=== PATIENT | female | born 1995 | race Two or more races ===

== ENCOUNTER 2024-05-20 13:17 | Emergency (ER) | payer BC, SELFPAY ==
--- NOTE | ~2024-05-20 | US_ITS ---
EXAMINATION: US OB <= 14 weeks fetus DATE: 05/20/2024 15:08 INDICATION: Abdominal pain during first trimester TECHNIQUE: Real-time pelvic ultrasound utilizing transabdominal probe was performed. Patient deferre d transvaginal imaging. The interpreting radiologist was not present for the study. COMPARISON: None. FINDINGS: The uterus measures 6.9 x 4.5 x 6.9 cm. There is an intrauterine gestational sac with double decidua l sign but no discernible yolk sac or pole yet apparent likely due to early stage of . The mean sac diameter measures 7 mm, which correlates with an estimated gestational age of 5 weeks a nd 3 days. The bilateral ovaries are not visualized. There is no free fluid in the pelvis. IMPRESSION: 1. Single intrauterine gestational sac with no discernible yolk sac or pole likely due to early stage of . 2. Gestational age by ultrasound based upon 7 mm mean sac diameter of 5 weeks 3 day(s) +/- 3 day(s) with ultrasound estimated date of delivery (DELICIA) of 01/17/2025. Reviewed, dictated and finalized at location A. IMPRESSION: 1. Single intrauterine gestational sac with no discernible yolk sac or po le likely due to early stage of . 2. Gestational age by ultrasound based upon 7 mm mean sac diameter of 5 weeks 3 day(s) +/- 3 day(s) with ultrasound estimated date of delivery (DELICIA) of 025.
[2024-05-20 13:22] VITALS: BP 148/94; PULSE 78; RESP 16; TEMP 36.7; O2SAT 100
--- NOTE | 2024-05-20 13:33 | ED.GENADULT ---
HPI - General Adult General Chief complaint: Unspecified Stated complaint: wants blood test Time Seen by Provider: 05/20/24 13:20 History of Present Illness HPI narrative: patient is here requesting serum test she states he had taken 2 test at home and results were equivocal, she has been having some vague nausea and lower abdominal pain and would like to have serum test. no vaginal bleeding, last period one month ago Review of Systems Review of Systems: All systems reviewed & are unremarkable except as noted in HPI and below Exam Narrative: EXAMINATION OF ORGAN SYSTEMS/BODY AREAS: Constitutional: Vital signs per nursing GENERAL:[No acute distress, non-toxic appearing.] HEAD: Normal with no signs of head trauma. EYES: EOMI, conjunctiva normal ENT: Hearing grossly intact LUNGS: Nonlabored breathing. HEART: [Regular rate and rhythm] ABD: [Soft], nondistended EXT: Normal range of motion SKIN: [No rashes or lesions.] NEURO: [Alert and oriented x 3. No gross focal sensory or strength deficits.] PSYCH: Normal affect Course Vital Signs Vital signs: Vital Signs Temperature 98.0 F 05/20/24 13:22 Pulse Rate 78 05/20/24 13:22 Respiratory Rate 16 05/20/24 13:22 Blood Pressure 148/94 H 05/20/24 13:22 Pulse Oximetry 100 05/20/24 13:22 Oxygen Delivery Room Air 05/20/24 13:22 Temperature 98.0 F 05/20/24 13:22 Pulse Rate 78 05/20/24 13:22 Respiratory Rate 16 05/20/24 15:11 Blood Pressure 148/94 H 05/20/24 13:22 Pulse Oximetry 100 05/20/24 13:22 Oxygen Delivery Room Air 05/20/24 13:22 Medical Decision Making [facility] Narrative Medical decision making narrative: Patient presenting with concern for possible , test here is positive, transvaginal ultrasound ordered however patient would prefer to wait at this time, she went back and forth on whether she was having pain initially said no, then said possibly a fullness and discomfort in her lower abdomen, no vaginal bleeding. transabdominal ultrasound shows intrauterine sac, very likely early around 5 weeks. She is given prescription for vitamins and follow-up to be with return precautions. Patient agreeable to this plan. Vital Signs Vital Signs: Vital Signs Temperature 98.0 F 05/20/24 13:22 Pulse Rate 78 05/20/24 13:22 Respiratory Rate 16 05/20/24 13:22 Blood Pressure 148/94 H 05/20/24 13:22 Pulse Oximetry 100 05/20/24 13:22 Oxygen Delivery Room Air 05/20/24 13:22 Temperature 98.0 F 05/20/24 13:22 Pulse Rate 78 05/20/24 13:22 Respiratory Rate 16 05/20/24 15:11 Blood Pressure 148/94 H 05/20/24 13:22 Pulse Oximetry 100 05/20/24 13:22 Oxygen Delivery Room Air 05/20/24 13:22 Lab Data Labs: Lab Results 05/20/24 Range/Units 13:26 Beta HCG, Quant 8703.20 mIU/ML Discharge Plan Discharge Clinical Impression: Patient Disposition: Home, Self-Care Condition: Stable Instructions: Antibiotic Form, Abdominal Pain in (ED) Additional Instructions: Please follow-up with the OBGYN, and come back to the emergency room for any worsening symptoms including abdominal pain or vaginal bleeding. Prescriptions: New Alive Daily Support 180 mcg-25 mg- 25 mg tablet,chewable 1 tablet PO DAILY 30 Days Qty: 30 0RF Follow-up/Referrals: Latanya Card MD [Physician] - 2 Days UNKNOWN,DOCTOR [Primary Care Provider] -
[2024-05-20 15:11] VITALS: RESP 16
== END 2024-05-20 15:15 | disposition home or self-care (01) ==
PROVIDERS: Emergency Provider Emergency Medicine
DX: O26.891 Other specified pregnancy related conditions, first trimester (principal); R10.30 Lower abdominal pain, unspecified; Z3A.01 Less than 8 weeks gestation of pregnancy
CPT/HCPCS: 36415; 76801; 84702; 99284

== ENCOUNTER 2024-07-02 11:48 | Outpatient (CLI) | payer BC, SELFPAY ==
[2024-07-02 17:04] LABS: Basophils Percent Auto 0.2 % (0.2-1.2); Eosinophils Percent Auto 0.3 % (0-4.4); Hemoglobin 11.4 g/dL (12.0-15.0); Immature Granulocyte Absolute 0.01 K/mm3 (0.00-0.031); Immature Granulocyte Percent A 0.2 % (0-0.5); Lymphocytes Absolute Auto 1.61 K/mm3 (0.9-3.2); Lymphocytes Percent Auto 27.9 % (18.3-44.2); Mean Corpuscular HGB Conc 31.7 g/dl (32-36); Mean Corpuscular Hemoglobin 29.7 pg (26-34); Mean Corpuscular Volume 93.8 fl (80-100); Monocytes Absolute Auto 0.3 K/mm3 (0.1-0.6); Monocytes Percent Auto 4.8 % (2.6-8.5); Neutrophils Absolute Auto 3.9 K/mm3 (1.3-6.7); Neutrophils Percent Auto 66.6 % (45.5-73.1); Platelet Count Result 239 k/mm3 (150-375); Red Blood Count 3.84 M/mm3 (4.2-5.4); Red Cell Distribution Width 12.8 % (11.5-14.5); White Blood Count 5.8 K/mm3 (4.5-10.0)
[2024-07-02 18:20] LABS: Hepatitis B Surface Antigen Negative (Negative); Rubella IgG Antibody 51.6 IU/ML
[2024-07-02 19:57] LABS: HIV 1/2 Ab P24 Ag Result Negative (Negative)
[2024-07-03 10:21] LABS: Rapid Plasma Reagin Non-Reactive (NonReactive)
[2024-07-03 13:58] LABS: Varicella IgG Antibody <1.00 S/CO
== END 2024-07-02 11:49 | disposition home or self-care (01) ==
PROVIDERS: Visit Provider Student in an Organized Health Care Education/Training Program
DX: Z34.90 Encounter for supervision of normal pregnancy, unspecified, unspecified trimester (principal); Z3A.00 Weeks of gestation of pregnancy not specified
CPT/HCPCS: 36415; 81220; 81329; 84702; 85025; 85660; 86592; 86644; 86703; 86747; 86762; 86787; 86850; 86900; 86901; 87086; 87340; G0432

== ENCOUNTER 2025-01-20 17:01 | Inpatient (IN) | payer BC, SELFPAY ==
[2025-01-20] VITALS (13 sets, daily range): BP systolic 118–147; BP diastolic 64–121; PULSE 57–85; TEMP 36.8–36.9; O2SAT 97; BMI 27.6
--- OUTSIDE RECORDS SUMMARY | 2025-01-20 17:06 | XMS_ITS | Clinical Summary ---
Author Organization [facility] Address [address] [address] Care Team Providers Care Member Services Representative Name Role Phone Unavailable Primary Care Provider Unavailabl e Source Comments [facility],non-owned Affiliates and Associated Physician Practices is amultiple site organization consisting of ambulatory clinics and hospital sitesin [place], [place], [place] and [place]. This disclosure is being madepursuant to the Care Everywhere program and may not contain all information available regarding this patient. Last updated 18.[facility] Allergies Active Allergy Reactions Criticality Noted Date Comments Malaria (Hbsag-Fused) Vaccine Recomb Adj Itching 07/25/2024 Medications * Be aware that medications may not be up to date on this document. Alwaysverify current medications with the patient. Vit-Fe Fumarate-FA ( vitamin) 28-0.8 MG tablet Take 1 (one) tablet by mouth once daily Active famotidine (Pepcid) 10 MG tablet Take 2 (two) tablets by mouth once daily Active aspirin (Aspirin) 81 MG chew tablet Take 1 (one) tablet by mouth once daily Active ferrous sulfate 325 (65 FE) MG tablet Take 1 (one) tablet by mouth once daily Active Active Problems Problem Noted Date Diagnosed Date High-risk in second trimester 07/31/20 24 History of intrauterine , currently p regnant 07/31/2024 History of loss 09/17/2022 Overview (07/31/2024): per patient and sig. other 32 weeks Personal history of malaria: age 8 Language barrier, cultural differences: speaks F rench Estimated Date of Delivery Comme nts Yes 01/21/2025 Based on last me nstrual period of 04/16/2024 Encounters Date Type Department Care Team Description 01/13/2025 9:00 AM CDT - 01/13/2025 11:59 PM CDT Hospital Encounter [facility] [address] [place] [phone] Head, Cary Vang MD Discharge Disposition: Home or Self Care 01/06/2025 9:00 AM CDT - 01/06/2025 11:59 PM CDT Hospital Encounter [facility] [address] [place] [phone] Tai Rodriguez MD Discharge Disposition: Home or Self Care 01/06/2025 Travel 12/30/2024 9:00 AM CDT - 12/30/2024 11:59 PM CDT Hospital Encounter [facility] [address] [place] [phone] Tai Rodriguez MD Discharge Disposition: Home or Self Care 12/24/2024 2:14 PM CDT - 12/24/2024 11:59 PM CDT Hospital Encounter [facility] [address] [place] [phone] Teri Hurtado MD Discharge Disposition: Home or Self Care 12/19/2024 1:41 PM CDT - 12/19/2024 11:59 PM CDT Hospital Encounter [facility] [address] [place] [phone] Tolu Wheeler MD Stewart, Jeffrey D, MD Discharge Disposition: Home or Self Care 12/12/2024 9:00 AM CDT - 12/12/2024 11:59 PM CDT Hospital Encounter [facility] [address] [place] [phone] Tai Rodriguez MD Discharge Disposition: Home or Self Care 12/02/2024 9:00 AM CDT - 12/02/2024 11:59 PM CDT Hospital Encounter [facility] [address] [place] [address] Teri Hurtado MD Discharge Disposition: Home or Self Care 11/24/2024 9:45 AM CDT - 11/24/2024 11:59 PM CDT Hospital Encounter [facility] [address] [place] [phone] Tai Rodriguez MD Discharge Disposition: Home or Self Care 11/19/2024 1:45 PM [employer] - 11/19/2024 11:59 PM [employer] Hospital Encounter [facility] [address] [place] [phone] Tolu Wheeler MD Discharge Disposition: Home or Self Care 11/10/2024 9:00 AM [employer] - 11/10/2024 11:59 PM [employer] Hospital Encounter [facility] [address] [place] [phone] Tai Rodriguez MD Discharge Disposition: Home or Self Care from Last 3 Months Social History Tobacco Use Types Packs/Day Years Used Date Smoking Tobacco: Never Assessed Estimated Date of Delivery Comme nts Yes 01/21/2025 Based on last me nstrual period of 04/16/2024 Sex and Gender Information Value Date Recorded Sex Assigned at Not on file Legal Sex Female 3:26 PM [employer] Gender Identity Not on file Sexual Orientation Not on file Last Filed Vital Signs Vital Sign Reading Time Taken Comments Blood Pressure 126/85 01/13/2025 10:49 AM CDT Pulse 71 01/13/2025 10:49 AM CDT Temperature - - Respiratory Rate - - Oxygen Saturation - - Inhaled Oxygen Concentration - - Weight 68.6 kg (151 lb 3.2 oz) 11/19/2024 2:07 P M [employer] Height - - Body Mass Index - - Plan of Treatment Health Maintenance Due Date Last Done Comments PAP SMEAR 1994 HIV SCREENING 2009 HEPATITIS C SCREENING 10/14/2012 DTAP/TDAP/TD VACCINES (1 - Tdap) 2013 HEPATITIS B VACCINE (1 of 3 - 19+ 3-dose series) 2013 COVID-19 VACCINE (1 - 2023-2 5 season) 2024 DEPRESSION SCREENING 09/17/2024 OB-ONE HOUR GLUCOSE 10/15/2024 OB-TDAP CURRENT 10/22/2024 OB-RHOGAM INJECTION 10/29/2024 OB-GROUP B STREP SCREEN 12/17/2024 INFLUENZA VACCINE (Season Ended) 2025 ZOSTER VACCINE (1 of 2) 2044 HIB VACCINE Aged Out No longer eligi ble based on patient's age to complete this topic HPV VACCINE Aged Out No longer eligi ble based on patient's age to complete this topic MENINGOCOCCAL (Group B) VACC INE SHARED DECISION-MAKING Aged Out No longer eligibl e based on patient's age to complete this topic MENINGOCOCCAL GROUPS A/C/Y/W VACCINE Aged Out No longer eligible b ased on patient's age to complete this topic PNEUMOCOCCAL VACCINE Aged Out No long er eligible based on patient's age to complete this topic Respiratory Syncytial Virus (RSV) Vaccine Pt: or over 60 yrs (No Doses Required) Completed Procedures Procedure Name Priority Date/Time Associated Diagnosis Comments [facility] Rout[facility] 01/13/2025 9:33 AM CDT History of intrauterine , currently ([facility]) Personal history of malaria: age 8 BIOPHYSICAL PROFILE [facility] Routine 01/06/2025 8:54 AM CDT History of intrauterine , currently ([facility]) Personal history of malaria: age 8 [facility]HYSICAL [facility] Routine 12/30/2024 8:52 AM CDT History of intrauterine , currently ([facility]) Language barrier, cultural differences: speaks Irish History of loss Personal history of malaria: age 8 Encounter for screening ([facility]) High-risk , third trimester ([facility]) BIOPHYSICAL PROFILE W T Routine 12/24/2024 2:17 PM CDT History of intrauterine , currently ([facility]) Language barrier, cultural differences: speaks Irish History of loss Personal history of malaria: age 8 Encounter for screening ([facility]) High-risk , third trimester ([facility]) BIOPHYSICAL PROFILE W NST Routine 12/19/2024 2:16 PM CDT History of intrauterine , currently ([facility]) Language barrier, cultural differences: speaks Irish History of loss Personal history of malaria: age 8 Encounter for screening ([facility]) High-risk , third trimester ([facility]) BIOPHYSICAL PROFILE W NST Routine 12/12/2024 8:54 AM CDT High-risk in second trimester History of intrauterine , currently Personal history of malaria: age 8 Encounter for screening Language barrier, cultural differences: speaks Irish BIOPHYSICAL PROFILE W NST Routine 12/02/2024 8:56 AM CDT High-risk in second trimester History of intrauterine , currently Personal history of malaria: age 8 Encounter for screening Language barrier, cultural differences: speaks Irish BIOPHYSICAL PROFILE W NST Routine 11/24/2024 9:40 AM CDT High-risk in second trimester History of intrauterine , currently Personal history of malaria: age 8 Encounter for screening Language barrier, cultural differences: speaks Irish BIOPHYSICAL PROFILE W NST Routine 11/19/2024 2:33 PM [employer] High-risk in second trimester History of intrauterine , currently Personal history of malaria: age 8 Encounter for screening Language barrier, cultural differences: speaks Irish BIOPHYSICAL PROFILE W NST Routine 11/10/2024 8:59 AM [employer] High-risk in second trimester History of intrauterine , currently Personal history of malaria: age 8 Encounter for screening Language barrier, cultural differences: speaks Irish from Last 3 Months Results * BIOPHYSICAL PROFILE W NST (01/13/2025 9:33 AM CDT) Only the most recent of10 resultswithin the time period is included. Linked Results Indication ======== History of Malaria age 8 in the [place] Prior demise & ? IUGR at 30 weeks History ====== OB History 2. Para 1 [id number] Lab Tests Test Date Result Declined Maternal Assessment = Physical Exam Height 168 cm, 5 ft 6 in. Weight 75 kg, 165 lb. Initial weight 64 kg, 142 lb. BMI 26.63 kg/m . Initial BMI 22.92 kg/m . Weight gain 10 kg, 23 lb Method ====== Transabdominal ultrasound examination. View: Sufficient ========= Trejo . Number of fetuses: 1 Dating ====== Date Details Gest. age DELICIA LMP 04/16/2024 38 w + 6 d 01/21/2025 Stated DELICIA 38 w + 6 d 01/21/2025 Assigned dating based on the LMP, selected on 07/30/2024 38 w + 6 d 01/21/2025 General Evaluation Cardiac activity present. FHR 128 bpm. Presentation: cephalic Placenta: Placental site: posterior Amniotic Fluid Assessment ===== Amount of AF: normal MVP 5.3 cm. BELL 16.6 cm. Q1 2.4 cm, Q2 5.3 cm, Q3 4.0 cm, Q4 4.9 cm Biophysical Profile 0: breathing movements 2: Gross body movements 2: tone 2: Amniotic fluid volume NST: reactive 04/26 Biophysical profile score Non Stress Test NST interpretation: reactive. Baseline FHR 135 bpm. Baseline variability: moderate. Accelerations: present. Decelerations: absent. Uterine activity: present, irregular Biometry BPD 94.5 mm 38w 4d 72% Hadlock HC 340.5 mm 39w 1d 45% Hadlock AC 334.1 mm 37w 2d 28% Hadlock Femur 71.9 mm 36w 6d 12% Hadlock Humerus 61.5 mm 35w 4d 9% Binh HC / AC 1.02 Weight Calculation: EFW 3,240 g 36% Hadlock EFW (lb,oz) 7 lb 2 oz EFW by Hadlock ([id number]) appropriate Growth Overview = Exam date GA BPD (mm) HC (mm) AC (mm) FL (mm) HL (mm) EFW (g) 07/30/2024 15w 0d 32.7 91% 119.7 82% 99.8 85% 18.6 67% 18.3 70% 135 88% 08/26/2024 18w 6d 47.1 94% 170.3 79% 144.2 75% 29.1 47% 29 72% 292 77% 09/24/2024 23w 0d 61.5 96% 219.8 75% 185.2 52% 42 61% 37.7 46% 610 71% 10/22/2024 27w 0d 70.8 83% 269.2 90% 229.8 53% 51.5 51% 46.2 53% 1109 65% 11/19/2024 31w 0d 83.2 95% 304.1 87% 264 32% 58.6 25% 52 34% 1698 41% 12/19/2024 35w 2d 92.7 97% 332.3 80% 308.2 42% 64.1 4% 56.4 11% 2547 38% 01/13/2025 38w 6d 94.5 72% 340.5 45% 334.1 28% 71.9 12% 61.5 9% 3240 36% Anatomy The following structures appear normal: Abdomen Stomach. Kidneys. Bladder. sex: male. Impression ========= Single, live, intrauterine at 38w 6d The growth is appropriate. The amniotic fluid volume is normal. The biophysical profile is 8/10. (no breathing) Follow-up ======== Follow up ultrasound in 1 week for weekly NST and biophysical profile Delivery is recommended at 39-40 weeks. Delivery is recommended by DELICIA. Close maternal attention to movement is recommended. Coding ====== Procedures 18711: [place] [address]: Biophysical Profile W NST . [facility] PACS Anatomical Region Laterality Modality Other 01/13/2025 9:33 AM CDT uQinten Forbes MD [facility] ORDERABLES Edited Result - Final from Last 3 Months Insurance [facility] Address: [facility] [id number] [place] [id number]
--- NOTE | 2025-01-20 17:57 | LDADM ---
This patient, Sinai Rodriguez, was admitted to Labor/Delivery/Recovery 104 on 01/20/25 at 17:01. Plans for labor, pain management and were discussed with patient. Patient/family oriented to hospital policies and general routines including ID bracelet, bed and alarms, visiting hours, pain management, procedures, bathroom and other care routines, personal items, smoking policy, room service/diet and guest tray routines, security routines, and visiting hours. Patient/Family are encouraged to report perceived risks to care and to ask questions if they do not understand what they are told or what they should do. See OBIX for further documentation.
[2025-01-20] MEDS: DINOPROSTONE 10 MG VAG INSERT VAGINAL (18:32)
[2025-01-20 18:52] LABS: Hematocrit 36.4 % (37.0-47.0); Mean Corpuscular Hemoglobin 31.2 pg (26-34); Mean Corpuscular Volume 94.5 fl (80-100); Platelet Count Result 155 k/mm3 (150-375); Red Blood Count 3.85 M/mm3 (4.2-5.4); Red Cell Distribution Width 12.5 % (11.5-14.5); White Blood Count 8.2 K/mm3 (4.5-10.0)
[2025-01-20 19:26] LABS: Band Neutrophils Percent 1 % (0-6); Eosinophils Absolute Manual 0.16 K/mm3 (0.02-0.50); Eosinophils Percent Manual 2 % (0-4); Lymphocytes Absolute Manual 2.21 K/mm3 (1.1-4.5); Lymphocytes Percent Manual 27 % (18-44); Monocytes Absolute Manual 0.57 K/mm3 (0.1-0.90); Monocytes Percent Manual 7 % (3-9); Neutrophils Absolute Manual 5.24 K/mm3 (1.7-7.2); Neutrophils Percent Manual 63 % (46-73); Platelet Estimate Adequate (Adequate); Total Cells Counted 100
[2025-01-20 19:27] LABS: Schistocytes None Seen
[2025-01-20 19:50] LABS: HIV 1/2 Ab P24 Ag Result Negative (Negative)
[2025-01-20 19:56] LABS: Syphilis IgG/IgM Antibody Negative (Negative)
[2025-01-21] VITALS (297 sets, daily range): BP systolic 98–167; BP diastolic 62–118; PULSE 36–242; RESP 18; TEMP 36.6–37.2; O2SAT 84–100
--- NOTE | 2025-01-21 07:25 | P.HPUP_ITS ---
History and Physical Update Update Date/Time: 01/21/25 07:25 29 yo who presents for IOL at 40w1d History and Physical has been reviewed, including an updated exam of the patient. There are NO changes in the patient's condition. Risks, benefits, and alternatives have been discussed and questions answered. Patient agrees to proceed with procedure. - h/o IUFD @ 7 mo, likely 2/2 preeclampsia, low dose ASA, will start testing at 30wk - anti-cardiolipin antibody elevated at 14, will need repeat after 11/01/24, MFM following - h/o malaria at age 8- moved her from [facility], recent test was negative for malaria - varicella non-immune - Syriac speaking - NIPT low risk A/P: admit to L&D plan for cervidil IOL continuous EFM GBS positive, will start abx with pitocin
[2025-01-21] MEDS: LACTATED RINGERS 1,000 ML 125 ML IV CONT ×4 (07:37→22:00)
[2025-01-21] MEDS: OXYTOCIN 30 UNITS/NS 500 ML 30 UNITS/500 ML BAG IV CONT (07:37)
[2025-01-21] MEDS: AMPICILLIN 2 GM/NS 100 ML 2 GM/100 ML BAG IVPB (07:38)
[2025-01-21] MEDS: AMPICILLIN 1 GM/NS 50 ML 1 GM/50 ML BAG IVPB ×4 (11:32→23:27)
[2025-01-21] MEDS: MULTIVIT/MIN/PREN/FOL AC/IRON TABLET 1 TAB PO (11:32)
--- NOTE | 2025-01-21 17:53 | P.PNAN_ITS ---
Anes - Initial Pre Proc Eval Procedure: labor epidural Date/Time: 01/21/25 17:53 Surgeon: Quintne Forbes MD Pre Op Diagnosis: labor pain Pre Op Diagnosis: Induction of Labor Patient Data Age: 29 Gender: F Height: 1.65 m Weight: 75.296 kg Last Vital Signs Temp 36.6 C 01/21/25 17:09 Pulse 62 01/21/25 17:51 Resp 18 01/21/25 03:59 BP 126/80 01/21/25 17:51 Pulse Ox 100 01/21/25 17:52 O2 Del Method Room Air 01/20/25 19:00 Allergies Allergy/AdvReac Type Severity Reaction Status Date / Time malaria vaccine Allergy Intermediate Itching Uncoded 01/19/25 15:18 Home Medications ?Medication ?Instructions ?Recorded ?Confirmed ?Type mv-mn no.97-folic 180 mcg-dha 25 1 tablet PO DAILY 30 days #30 tabs 05/20/24 01/19/25 Rx mg-herb no.293 25 mg chewable tablet (Alive Daily Support ) famotidine 10 mg tablet 10 mg PO DAILY #90 tabs 06/10/24 01/19/25 Rx Laboratory Tests 01/20/25 17:26 WBC 8.2 K/mm3 (4.5-10.0) RBC 3.85 L M/mm3 (4.2-5.4) Hgb 12.0 g/dL (12.0-15.0) Hct 36.4 L % (37.0-47.0) MCV 94.5 fl (80-100) MCH 31.2 pg (26-34) MCHC 33.0 g/dl (32-36) RDW 12.5 % (11.5-14.5) Plt Count 155 k/mm3 (150-375) MPV 13.0 H fl (7.4-10.4) Immature Gran % (Auto) Not Reportable Neut % (Auto) Not Reportable Lymph % (Auto) Not Reportable [facility] % (Auto) Not Reportable Eos % (Auto) Not Reportable Baso % (Auto) Not Reportable Lymph # (Auto) Not Reportable [facility] # (Auto) Not Reportable Eos # (Auto) Not Reportable Baso # (Auto) Not Reportable Abs Immat Gran (auto) Not Reportable Absolute Neuts (auto) Not Reportable Absolute Nucleated RBC Not Reportable Total Counted 100 Neutrophils % (Manual) 63 % (46-73) Band Neutrophils % 1 % (0-6) Lymphocytes % (Manual) 27 % (18-44) Monocytes % (Manual) 7 % (3-9) Eosinophils % (Manual) 2 % (0-4) Nucleated RBC % Not Reportable Abs Neuts (Manual) 5.24 K/mm3 (1.7-7.2) Abs Lymphs (Manual) 2.21 K/mm3 (1.1-4.5) Abs Monocytes (Manual) 0.57 K/mm3 (0.1-0.90) Absolute Eos (Manual) 0.16 K/mm3 (0.02-0.50) Platelet Estimate Adequate (Adequate) Schistocytes None seen Syphilis IgG/IgM Ab Negative (Negative) HIV 1&2 Ab/P24 Ag 4thGn Negative (Negative) Blood Type A Positive Antibody Screen Negative Patient hx anesthesia problems: none Family hx anesthesia problems: none Results Review: All pre-operative results and documents have been reviewed as part of the pre- operative evaluation. [facility] Past Medical History Medical History (Updated 01/21/25 @ 17:54 by Alexis Almaguer DO) History of malaria age 8 Encounter for supervision of other normal , second trimester Family History Family History Other Unknown family medical history Social History Social History Smoking status: Never smoker Alcohol intake: never Substance use: never Substance use type: does not use Do You Feel Safe in your Home?: Yes Lack of Transportation: No Lack of Food: Never True Current Housing: I Have Housing Concerned About Future Housing: No Difficulty Paying Gas/Electric Bills: No Difficulty Paying for Meds: No Currently Unemployed: No Education: High School Diploma/GED Difficulty w/ Childcare or Family Care: No Living arrangements: with family Occupation/Education: unemployed Gender identity (if verbalized by the patient): Female Sexual Orientation (if Verbalized by the Patient): Straight or Heterosexual Spiritual care concerns: No Anes - Eval Final PreProcedure Day of Procedure 01/21/25 17:53 Patient weight: overweight ASA classification: II Anesthetic plan: proceed Anesthesia type and monitoring: regional epidural and standard monitoring Results Review: All pre-operative results and documents have been reviewed as part of the pre- operative evaluation. Informed Consent: The patient's anesthetic plan and its attendant risks and benefits were discussed with the patient/family/POA. Questions were solicited and answers provided to the satisfaction of the patient/family/POA.
[2025-01-22] VITALS (152 sets, daily range): BP systolic 110–173; BP diastolic 26–98; PULSE 25–158; RESP 16–20; TEMP 36.4–37.5; O2SAT 73–100
[2025-01-22] MEDS: SODIUM CHLORIDE 0.9% IV 300 ML 600 ML I-UTERINE (00:24)
[2025-01-22 00:41] LABS: Add Urine Microscopic? YES; Appearance Urine Clear (Clear); Bacteria Urine None Seen /hpf; Bilirubin Urine Negative (Negative); Blood Urine 1+ (Negative); Color Urine Yellow (Yellow); Glucose Urine UA Negative (Negative); Ketones Urine Negative (Negative); Leukocyte Esterase Ur 2+ LEU/UL (Negative); Nitrate Urine Negative (Negative); Non Pathogenic Casts 0-2; Protein Urine Negative (Negative); RBC Urine 21-50 /hpf (0-2); Specific Grav Ur 1.011 (1.001-1.035); Squamous Epithelial Cell Urine None Seen /hpf (Few); Urobilinogen Urine 0.2 mg/dL (<2.0); WBC Urine 21-50 /hpf (0-3); pH Urine 7.5 (5.0-9.0)
[2025-01-22 00:42] LABS: Creatinine Urine 36.2 mg/dL; Total Protein Urine Random 21 mg/dL; Ur Ttl Prot Creatinine Ratio 0.58 mg/mg (0-0.20)
[2025-01-22 01:03] LABS: Hematocrit 45.8 % (37.0-47.0); Hemoglobin 14.3 g/dL (12.0-15.0); Mean Corpuscular HGB Conc 31.2 g/dl (32-36); Mean Corpuscular Hemoglobin 30.6 pg (26-34); Mean Corpuscular Volume 98.1 fl (80-100); Mean Platelet Volume 12.2 fl (7.4-10.4); Platelet Count Result 181 k/mm3 (150-375); Red Blood Count 4.67 M/mm3 (4.2-5.4); Red Cell Distribution Width 12.5 % (11.5-14.5)
[2025-01-22 01:16] LABS: Band Neutrophils Percent 0 % (0-6); Neutrophils Absolute Manual 7.48 K/mm3 (1.7-7.2); Neutrophils Percent Manual 68 % (46-73); Total Cells Counted 100
[2025-01-22 01:17] LABS: Eosinophils Absolute Manual 0.11 K/mm3 (0.02-0.50); Eosinophils Percent Manual 1 % (0-4); Lymphocytes Absolute Manual 2.97 K/mm3 (1.1-4.5); Lymphocytes Percent Manual 27 % (18-44); Monocytes Absolute Manual 0.44 K/mm3 (0.1-0.90); Monocytes Percent Manual 4 % (3-9); Platelet Estimate Adequate (Adequate); Schistocytes None Seen
[2025-01-22 01:23] LABS: Alanine Aminotransferase 17 U/L (6-35); Albumin Level 4.2 g/dL (3.5-5.1); Alkaline Phosphatase 179 U/L (38-126); Anion Gap 12 mmol/L (4-12); Aspartate Amino Transferase 24 U/L (14-36); Bilirubin,Total 0.4 mg/dL (0.2-1.3); Blood Urea Nitrogen 7 mg/dL (7-17); Calcium 9.4 mg/dL (8.4-10.2); Carbon Dioxide 20 mmol/L (22-30); Chloride 106 mmol/L (98-107); Estimated CRCL calculation 135 ml/min; Estimated Glomerular Filt Rate > 60; Glucose 74 mg/dL (65-110); Potassium 3.9 mmol/L (3.4-5.0); Sodium 138 mmol/L (137-145); Uric Acid 3.9 mg/dL (2.5-7.5)
[2025-01-22] MEDS: AMPICILLIN 1 GM/NS 50 ML 1 GM/50 ML BAG IVPB (03:35)
--- NOTE | 2025-01-22 06:14 | PM.OBPNLAB ---
Pain Control Date/time seen: 01/22/25 06:14 Pain control: tolerating well and epidural Pelvic Exam Dilation (cm): 7 Effacement (%): 80 station: 0 Amniotic membrane status: Ruptured Contractions Monitor mode: External Contraction pattern: Irregular Contraction intensity: Mild Status status: Category ll Assessment and Plan Assessment: induction ongoing Comments: Discussed plan of care with patient and father of baby. heart tracing overnight had periodic episodes of recurrent late decelerations. Discussed these findings with the patient. head feels more applied into the pelvis. Will restart Pitocin. Discussed that if heart tracings are intolerant to labor, would consider section.
[2025-01-22] MEDS: LACTATED RINGERS 1,000 ML 125 ML IV CONT (06:50)
--- NOTE | 2025-01-22 06:50 | PM.IMHP ---
H&P: HPI History of Present Illness Date/Time: 01/22/25 06:50 Chief Complaint: Intrauterine at term Narrative: 31-year-old who presented at 40 weeks 1 day for induction of labor - h/o IUFD @ 7 mo, likely 2/2 preeclampsia, low dose ASA, testing since 30wk - h/o malaria at age 8- moved her from [facility], recent test was negative for malaria - varicella non-immune - Citizen Of [place] speaking - NIPT low risk Review of Systems Cardiovascular: Cardiovascular: Denies chest pain, Denies leg edema, Denies palpitations, Denies dyspnea and Denies dyspnea on exertion Respiratory: Respiratory: Denies cough, Denies dyspnea and Denies dyspnea on exertion Gastrointestinal: Gastrointestinal: Denies abdominal pain, Denies constipation, Denies diarrhea, Denies nausea and Denies vomiting Genitourinary: Genitourinary: Denies hematuria, Denies urinary frequency, Denies dysuria, Denies pelvic pain, Denies urinary incontinence and Denies vaginal discharge Neurologic: Reports system reviewed and no additional complaints, except as documented Psychiatric: Psychiatric: Reports no additional psychiatric complaints Endocrine: Endocrine: Denies palpitations PMF Past Medical History Medical History (Updated 01/21/25 @ 17:54 by Alexis Almaguer DO) Encounter for supervision of other normal , second trimester History of malaria age 8 Family History Family History Other Unknown family medical history Social History Social History Smoking status: Never smoker Alcohol intake: never Substance use: never Substance use type: does not use Do You Feel Safe in your Home?: Yes Lack of Transportation: No Lack of Food: Never True Current Housing: I Have Housing Concerned About Future Housing: No Difficulty Paying Gas/Electric Bills: No Difficulty Paying for Meds: No Currently Unemployed: No Education: High School Diploma/GED Difficulty w/ Childcare or Family Care: No Living arrangements: with family Occupation/Education: unemployed Gender identity (if verbalized by the patient): Female Sexual Orientation (if Verbalized by the Patient): Straight or Heterosexual Spiritual care concerns: No Meds Home Medications and Allergies Home Medications ?Medication ?Instructions ?Recorded ?Confirmed ?Type mv-mn no.97-folic 180 mcg-dha 25 1 tablet PO DAILY 30 days #30 tabs 05/20/24 01/19/25 Rx mg-herb no.293 25 mg chewable tablet (Alive Daily Support ) famotidine 10 mg tablet 10 mg PO DAILY #90 tabs 06/10/24 01/19/25 Rx Allergies Allergy/AdvReac Type Severity Reaction Status Date / Time malaria vaccine Allergy Intermediate Itching Uncoded 01/19/25 15:18 Vital Signs Vital Signs - 24 hr 01/21/25 06:53 01/21/25 06:58 01/21/25 07:01 Temperature Pulse Rate 68 Blood Pressure 113/74 Pulse Oximetry 100 98 01/21/25 07:03 01/21/25 07:08 01/21/25 07:13 Temperature Pulse Rate Blood Pressure Pulse Oximetry 99 99 99 01/21/25 07:16 01/21/25 07:18 01/21/25 07:43 Temperature 98.2 F Pulse Rate 66 Blood Pressure 121/81 Pulse Oximetry 100 01/21/25 07:45 01/21/25 07:46 01/21/25 07:50 Temperature Pulse Rate 64 Blood Pressure 140/93 H Pulse Oximetry 98 98 01/21/25 07:55 01/21/25 08:00 01/21/25 08:01 Temperature Pulse Rate 62 Blood Pressure 129/95 H Pulse Oximetry 98 99 01/21/25 08:05 01/21/25 08:10 01/21/25 08:15 Temperature Pulse Rate Blood Pressure Pulse Oximetry 98 99 98 01/21/25 08:16 01/21/25 08:20 01/21/25 08:23 Temperature Pulse Rate 70 80 Blood Pressure 137/102 H 129/87 Pulse Oximetry 98 01/21/25 08:25 01/21/25 08:30 01/21/25 08:31 Temperature Pulse Rate 62 Blood Pressure 133/88 Pulse Oximetry 97 99 01/21/25 08:35 01/21/25 08:40 01/21/25 08:45 Temperature Pulse Rate Blood Pressure Pulse Oximetry 99 98 100 01/21/25 08:46 01/21/25 08:50 01/21/25 08:55 Temperature Pulse Rate 69 Blood Pressure 138/87 Pulse Oximetry 99 99 01/21/25 09:00 01/21/25 09:01 01/21/25 09:05 Temperature Pulse Rate 66 Blood Pressure 155/94 H Pulse Oximetry 99 98 01/21/25 09:10 01/21/25 09:12 01/21/25 09:16 Temperature Pulse Rate 87 Blood Pressure 143/88 H Pulse Oximetry 99 99 01/21/25 09:17 01/21/25 09:22 01/21/25 09:31 Temperature Pulse Rate Blood Pressure Pulse Oximetry 100 99 100 01/21/25 09:36 01/21/25 09:41 01/21/25 09:44 Temperature 98.3 F Pulse Rate Blood Pressure Pulse Oximetry 100 99 01/21/25 09:46 01/21/25 09:51 01/21/25 09:56 Temperature Pulse Rate 63 Blood Pressure 137/89 Pulse Oximetry 99 100 99 01/21/25 10:01 01/21/25 10:06 01/21/25 10:11 Temperature Pulse Rate 71 Blood Pressure 136/86 Pulse Oximetry 99 99 100 01/21/25 10:16 01/21/25 10:21 01/21/25 10:26 Temperature Pulse Rate 62 Blood Pressure 158/85 H Pulse Oximetry 100 99 98 01/21/25 10:31 01/21/25 10:36 01/21/25 10:41 Temperature Pulse Rate 86 Blood Pressure 134/95 H Pulse Oximetry 98 98 98 01/21/25 10:46 01/21/25 10:51 01/21/25 10:56 Temperature Pulse Rate 90 Blood Pressure 136/96 H Pulse Oximetry 100 98 98 01/21/25 11:01 01/21/25 11:06 01/21/25 11:11 Temperature Pulse Rate 74 Blood Pressure 120/78 Pulse Oximetry 98 100 98 01/21/25 11:16 01/21/25 11:21 01/21/25 11:26 Temperature Pulse Rate 70 Blood Pressure 132/78 Pulse Oximetry 99 98 98 01/21/25 11:31 01/21/25 11:35 01/21/25 11:36 Temperature 98.9 F Pulse Rate 79 Blood Pressure 144/85 H Pulse Oximetry 99 99 01/21/25 11:41 01/21/25 11:46 01/21/25 11:51 Temperature Pulse Rate 73 Blood Pressure 142/91 H Pulse Oximetry 99 98 98 01/21/25 11:56 01/21/25 12:01 01/21/25 12:06 Temperature Pulse Rate 68 Blood Pressure 131/118 H Pulse Oximetry 100 99 98 01/21/25 12:11 01/21/25 12:11 01/21/25 12:16 Temperature Pulse Rate 70 Blood Pressure 147/85 H Pulse Oximetry 98 98 99 01/21/25 12:21 01/21/25 12:26 01/21/25 12:31 Temperature Pulse Rate 66 Blood Pressure 133/72 Pulse Oximetry 98 99 98 01/21/25 12:36 01/21/25 12:41 01/21/25 12:46 Temperature Pulse Rate 65 Blood Pressure 127/87 Pulse Oximetry 100 97 98 01/21/25 12:51 01/21/25 12:56 01/21/25 13:01 Temperature Pulse Rate 67 Blood Pressure 142/85 H Pulse Oximetry 98 98 98 01/21/25 13:06 01/21/25 13:11 01/21/25 13:16 Temperature Pulse Rate 62 Blood Pressure 132/82 Pulse Oximetry 98 99 98 01/21/25 13:21 01/21/25 13:26 01/21/25 13:31 Temperature Pulse Rate 64 Blood Pressure 129/91 H Pulse Oximetry 98 98 98 01/21/25 13:36 01/21/25 13:41 01/21/25 13:46 Temperature Pulse Rate 64 Blood Pressure 129/98 H Pulse Oximetry 98 99 99 01/21/25 13:51 01/21/25 14:21 01/21/25 14:26 Temperature Pulse Rate Blood Pressure Pulse Oximetry 99 99 100 01/21/25 14:31 01/21/25 14:36 01/21/25 14:41 Temperature Pulse Rate Blood Pressure Pulse Oximetry 99 100 100 01/21/25 14:46 01/21/25 14:51 01/21/25 14:56 Temperature Pulse Rate 82 Blood Pressure 125/81 Pulse Oximetry 100 98 99 01/21/25 15:01 01/21/25 15:06 01/21/25 15:11 Temperature Pulse Rate 81 Blood Pressure 125/79 Pulse Oximetry 98 100 98 01/21/25 15:16 01/21/25 15:21 01/21/25 15:26 Temperature Pulse Rate 76 Blood Pressure 118/76 Pulse Oximetry 99 99 100 01/21/25 15:31 01/21/25 15:36 01/21/25 15:41 Temperature Pulse Rate 72 Blood Pressure 122/68 Pulse Oximetry 98 98 100 01/21/25 15:46 01/21/25 15:51 01/21/25 15:56 Temperature Pulse Rate 80 Blood Pressure 126/66 Pulse Oximetry 99 100 100 01/21/25 16:01 01/21/25 16:06 01/21/25 16:11 Temperature Pulse Rate 76 Blood Pressure 129/87 Pulse Oximetry 100 100 100 01/21/25 16:16 01/21/25 16:21 01/21/25 16:41 Temperature Pulse Rate 79 Blood Pressure 124/77 Pulse Oximetry 99 100 100 01/21/25 16:46 01/21/25 16:50 01/21/25 16:53 Temperature Pulse Rate 71 81 Blood Pressure 127/75 167/102 H Pulse Oximetry 100 100 01/21/25 16:55 01/21/25 16:58 01/21/25 17:00 Temperature Pulse Rate 72 Blood Pressure 140/87 Pulse Oximetry 100 100 01/21/25 17:01 01/21/25 17:03 01/21/25 17:05 Temperature Pulse Rate 74 66 Blood Pressure 157/96 H 145/81 H Pulse Oximetry 100 01/21/25 17:09 01/21/25 17:10 01/21/25 17:15 Temperature 97.8 F Pulse Rate Blood Pressure Pulse Oximetry 100 100 01/21/25 17:16 01/21/25 17:20 01/21/25 17:31 Temperature Pulse Rate 79 71 Blood Pressure 137/85 145/82 H Pulse Oximetry 99 01/21/25 17:34 01/21/25 17:37 01/21/25 17:40 Temperature Pulse Rate 65 Blood Pressure 135/79 Pulse Oximetry 99 100 01/21/25 17:41 01/21/25 17:42 01/21/25 17:47 Temperature Pulse Rate 59 L Blood Pressure 129/87 Pulse Oximetry 100 100 01/21/25 17:51 01/21/25 17:52 01/21/25 17:57 Temperature Pulse Rate 62 Blood Pressure 126/80 Pulse Oximetry 100 100 01/21/25 18:01 01/21/25 18:02 01/21/25 18:07 Temperature Pulse Rate 61 Blood Pressure 128/82 Pulse Oximetry 100 100 01/21/25 18:11 01/21/25 18:12 01/21/25 18:17 Temperature Pulse Rate 59 L Blood Pressure 126/78 Pulse Oximetry 100 100 01/21/25 18:21 01/21/25 18:22 01/21/25 18:27 Temperature Pulse Rate 77 Blood Pressure 116/62 Pulse Oximetry 100 99 01/21/25 18:31 01/21/25 18:32 01/21/25 18:37 Temperature Pulse Rate 56 L Blood Pressure 131/76 Pulse Oximetry 100 100 01/21/25 18:41 01/21/25 18:42 01/21/25 18:47 Temperature Pulse Rate 61 Blood Pressure 125/73 Pulse Oximetry 99 99 01/21/25 18:51 01/21/25 18:52 01/21/25 18:57 Temperature Pulse Rate 62 Blood Pressure 127/73 Pulse Oximetry 98 99 01/21/25 19:01 01/21/25 19:06 01/21/25 19:11 Temperature Pulse Rate 65 56 L Blood Pressure 129/83 133/82 Pulse Oximetry 100 99 99 01/21/25 19:16 01/21/25 19:21 01/21/25 19:26 Temperature Pulse Rate 56 L Blood Pressure 134/85 Pulse Oximetry 99 99 97 01/21/25 19:31 01/21/25 19:36 01/21/25 19:41 Temperature Pulse Rate 57 L 55 L Blood Pressure 135/79 131/75 Pulse Oximetry 97 99 97 01/21/25 19:46 01/21/25 19:51 01/21/25 19:57 Temperature Pulse Rate 56 L Blood Pressure 137/84 Pulse Oximetry 98 99 99 01/21/25 20:01 01/21/25 20:02 01/21/25 20:07 Temperature Pulse Rate 56 L Blood Pressure 136/82 Pulse Oximetry 99 100 01/21/25 20:11 01/21/25 20:12 01/21/25 20:17 Temperature Pulse Rate 61 Blood Pressure 138/64 Pulse Oximetry 100 100 01/21/25 20:21 01/21/25 20:22 01/21/25 20:27 Temperature Pulse Rate 53 L Blood Pressure 123/77 Pulse Oximetry 100 100 01/21/25 20:31 01/21/25 20:32 01/21/25 20:37 Temperature Pulse Rate 56 L Blood Pressure 128/85 Pulse Oximetry 100 100 01/21/25 20:41 01/21/25 20:51 01/21/25 21:01 Temperature Pulse Rate 62 59 L 61 Blood Pressure 130/78 152/74 H 132/83 Pulse Oximetry 01/21/25 21:03 01/21/25 21:03 01/21/25 21:08 Temperature Pulse Rate Blood Pressure Pulse Oximetry 100 100 100 01/21/25 21:11 01/21/25 21:13 01/21/25 21:15 Temperature Pulse Rate 76 Blood Pressure 130/99 H Pulse Oximetry 100 100 01/21/25 21:15 01/21/25 21:20 01/21/25 21:21 Temperature Pulse Rate 68 Blood Pressure 130/87 Pulse Oximetry 100 100 01/21/25 21:23 01/21/25 21:24 01/21/25 21:25 Temperature Pulse Rate Blood Pressure Pulse Oximetry 100 100 100 01/21/25 21:27 01/21/25 21:27 01/21/25 21:28 Temperature Pulse Rate Blood Pressure Pulse Oximetry 100 100 100 01/21/25 21:31 01/21/25 21:33 01/21/25 21:38 Temperature Pulse Rate 59 L Blood Pressure 154/95 H Pulse Oximetry 99 98 01/21/25 21:41 01/21/25 21:43 01/21/25 21:48 Temperature Pulse Rate 66 Blood Pressure 137/84 Pulse Oximetry 100 99 01/21/25 21:51 01/21/25 21:53 01/21/25 21:58 Temperature Pulse Rate 61 Blood Pressure 129/82 Pulse Oximetry 99 100 01/21/25 22:01 01/21/25 22:03 01/21/25 22:08 Temperature Pulse Rate 65 Blood Pressure 125/83 Pulse Oximetry 97 100 01/21/25 22:11 01/21/25 22:13 01/21/25 22:18 Temperature Pulse Rate 58 L Blood Pressure 138/80 Pulse Oximetry 96 100 01/21/25 22:21 01/21/25 22:23 01/21/25 22:28 Temperature Pulse Rate 57 L Blood Pressure 132/82 Pulse Oximetry 99 99 01/21/25 22:31 01/21/25 22:33 01/21/25 22:38 Temperature Pulse Rate 60 Blood Pressure 144/81 H Pulse Oximetry 99 100 01/21/25 22:41 01/21/25 22:43 01/21/25 22:48 Temperature Pulse Rate 60 Blood Pressure 127/81 Pulse Oximetry 99 95 01/21/25 22:49 01/21/25 22:49 01/21/25 22:51 Temperature Pulse Rate 83 Blood Pressure 115/91 H Pulse Oximetry 85 L 84 L 01/21/25 22:54 01/21/25 22:59 01/21/25 23:01 Temperature Pulse Rate 58 L Blood Pressure 123/91 H Pulse Oximetry 100 100 01/21/25 23:04 01/21/25 23:09 01/21/25 23:11 Temperature Pulse Rate 69 Blood Pressure 124/90 Pulse Oximetry 100 100 01/21/25 23:14 01/21/25 23:19 01/21/25 23:21 Temperature Pulse Rate 64 Blood Pressure 139/93 H Pulse Oximetry 100 100 01/21/25 23:24 01/21/25 23:29 01/21/25 23:31 Temperature Pulse Rate 68 Blood Pressure 130/106 H Pulse Oximetry 100 100 01/21/25 23:34 01/21/25 23:39 01/21/25 23:41 Temperature Pulse Rate 62 Blood Pressure 128/74 Pulse Oximetry 100 100 01/21/25 23:44 01/21/25 23:51 01/22/25 00:00 Temperature 98.8 F Pulse Rate 75 Blood Pressure 129/88 Pulse Oximetry 99 01/22/25 00:01 01/22/25 00:10 01/22/25 00:11 Temperature Pulse Rate 61 67 Blood Pressure 146/88 H 165/90 H Pulse Oximetry 100 01/22/25 00:13 01/22/25 00:18 01/22/25 00:23 Temperature Pulse Rate Blood Pressure Pulse Oximetry 77 L 98 100 01/22/25 00:26 01/22/25 00:27 01/22/25 00:27 Temperature Pulse Rate Blood Pressure Pulse Oximetry 95 100 100 01/22/25 00:32 01/22/25 00:35 01/22/25 00:40 Temperature Pulse Rate Blood Pressure Pulse Oximetry 100 94 84 L 01/22/25 00:41 01/22/25 00:58 05/08/25 00:59 Temperature Pulse Rate 74 Blood Pressure Pulse Oximetry 73 L 100 01/22/25 01:03 01/22/25 01:04 01/22/25 01:09 Temperature Pulse Rate 123 H Blood Pressure Pulse Oximetry 88 L 99 100 01/22/25 01:12 01/22/25 01:14 01/22/25 01:19 Temperature Pulse Rate 137 H 104 H Blood Pressure 131/83 Pulse Oximetry 100 100 01/22/25 01:21 01/22/25 01:26 01/22/25 01:31 Temperature Pulse Rate 92 Blood Pressure 136/63 Pulse Oximetry 100 100 100 01/22/25 01:36 01/22/25 01:41 01/22/25 01:46 Temperature Pulse Rate 65 Blood Pressure 127/91 H Pulse Oximetry 100 100 100 01/22/25 01:51 01/22/25 01:56 01/22/25 02:01 Temperature Pulse Rate 95 Blood Pressure 135/96 H Pulse Oximetry 100 100 100 01/22/25 02:06 01/22/25 02:11 01/22/25 02:16 Temperature Pulse Rate 68 Blood Pressure 141/78 H Pulse Oximetry 100 98 100 01/22/25 02:21 01/22/25 02:26 01/22/25 02:31 Temperature Pulse Rate 73 Blood Pressure 152/90 H Pulse Oximetry 100 100 99 01/22/25 02:36 01/22/25 02:41 01/22/25 02:43 Temperature Pulse Rate Blood Pressure Pulse Oximetry 100 100 100 01/22/25 02:46 01/22/25 02:48 01/22/25 02:53 Temperature Pulse Rate 68 Blood Pressure 148/84 H Pulse Oximetry 100 100 01/22/25 02:58 01/22/25 02:59 01/22/25 03:01 Temperature Pulse Rate 90 Blood Pressure 111/66 Pulse Oximetry 100 100 01/22/25 03:04 01/22/25 03:09 01/22/25 03:14 Temperature Pulse Rate Blood Pressure Pulse Oximetry 100 100 99 01/22/25 03:16 01/22/25 03:19 01/22/25 03:24 Temperature Pulse Rate 87 Blood Pressure 131/90 Pulse Oximetry 100 100 01/22/25 03:29 01/22/25 03:31 01/22/25 03:34 Temperature Pulse Rate 77 Blood Pressure 135/90 Pulse Oximetry 100 100 01/22/25 03:39 01/22/25 03:44 01/22/25 03:46 Temperature Pulse Rate 76 Blood Pressure 136/85 Pulse Oximetry 100 100 01/22/25 03:49 01/22/25 03:54 01/22/25 03:59 Temperature Pulse Rate Blood Pressure Pulse Oximetry 98 99 99 01/22/25 04:01 01/22/25 04:04 01/22/25 04:09 Temperature Pulse Rate 79 Blood Pressure 145/90 H Pulse Oximetry 99 99 01/22/25 04:14 01/22/25 04:16 01/22/25 04:19 Temperature Pulse Rate 71 Blood Pressure 149/91 H Pulse Oximetry 98 99 01/22/25 04:24 01/22/25 04:29 01/22/25 04:31 Temperature Pulse Rate 74 Blood Pressure 147/86 H Pulse Oximetry 97 98 01/22/25 04:34 01/22/25 04:39 01/22/25 04:44 Temperature Pulse Rate Blood Pressure Pulse Oximetry 98 97 97 01/22/25 04:46 01/22/25 04:49 01/22/25 04:54 Temperature Pulse Rate 78 Blood Pressure 144/93 H Pulse Oximetry 98 97 01/22/25 04:59 01/22/25 05:01 01/22/25 05:02 Temperature 99.5 F Pulse Rate 69 Blood Pressure 146/82 H Pulse Oximetry 99 01/22/25 05:04 01/22/25 05:09 01/22/25 05:14 Temperature Pulse Rate Blood Pressure Pulse Oximetry 99 99 98 01/22/25 05:16 01/22/25 05:19 01/22/25 05:24 Temperature Pulse Rate 84 Blood Pressure 125/71 Pulse Oximetry 99 100 01/22/25 05:29 01/22/25 05:31 01/22/25 05:34 Temperature Pulse Rate 77 Blood Pressure 141/86 H Pulse Oximetry 98 98 01/22/25 05:39 01/22/25 05:44 01/22/25 05:46 Temperature Pulse Rate 70 Blood Pressure 130/77 Pulse Oximetry 98 97 01/22/25 05:49 01/22/25 05:54 01/22/25 05:59 Temperature Pulse Rate Blood Pressure Pulse Oximetry 97 98 98 01/22/25 06:01 01/22/25 06:04 01/22/25 06:09 Temperature Pulse Rate 74 Blood Pressure 137/80 Pulse Oximetry 97 100 01/22/25 06:14 01/22/25 06:17 01/22/25 06:19 Temperature Pulse Rate 118 H Blood Pressure 126/26 L Pulse Oximetry 100 100 01/22/25 06:24 01/22/25 06:29 01/22/25 06:31 Temperature Pulse Rate 158 H Blood Pressure 110/90 Pulse Oximetry 100 100 01/22/25 06:33 01/22/25 06:34 01/22/25 06:39 Temperature 98.2 F Pulse Rate Blood Pressure Pulse Oximetry 98 100 01/22/25 06:44 01/22/25 06:46 01/22/25 06:49 Temperature Pulse Rate 82 Blood Pressure 124/91 H Pulse Oximetry 99 100 Exam Const: General: no acute distress Eyes: EOM: EOMs intact bilaterally Neck: Neck: supple Thyroid: thyroid normal Chest: Breast/axilla inspection: normal inspection of the breasts Breast/axilla palpation: normal palpation of the breasts, normal palpation of the axillae and no axillary lymphadenopathy Resp: Effort & Inspection: normal respiratory effort Auscultation: clear to auscultation bilaterally Cardio: Rate: regular rate Rhythm: regular rhythm GI: Inspection: non-distended and other (Gravid) GI Palp: Yes Soft to palpation, No Tenderness to palpation present (GI) and No Guarding due to palpation present (GI) Auscultation: normal bowel sounds : Speculum Exam - Vagina: No vaginal bleeding OB/external & speculum: external exam normal; No vaginal bleeding Skin: General skin exam: normal color and no rashes or lesions noted Neuro: Cognition (Neuro): normal cognition Speech: normal speech Extrem: General: normal to inspection Psych: Mental Status: mental status grossly normal Affect: normal affect H&P: Results Labs Labs: Short CBC 01/22/25 Range/Units 00:19 WBC 11.0 H (4.5-10.0) K/mm3 Hgb 14.3 (12.0-15.0) g/dL Hct 45.8 (37.0-47.0) % Plt Count 181 (150-375) k/mm3 BMP 01/22/25 00:19 Sodium 138 Potassium 3.9 Chloride 106 Carbon Dioxide 20 L BUN 7 Creatinine 0.52 L Glucose 74 Calcium 9.4 Liver Function 01/22/25 Range/Units 00:19 Total Bilirubin 0.4 (0.2-1.3) mg/dL AST 24 (14-36) U/L ALT 17 (6-35) U/L Alkaline Phosphatase 179 H (38-126) U/L Albumin 4.2 (3.5-5.1) g/dL Urine 01/22/25 Range/Units 00:19 Urine Color Yellow (Yellow) Urine Appearance Clear (Clear) Urine pH 7.5 (5.0-9.0) Ur Specific [place] 1.011 (1.001-1.035) Urine Protein Negative (Negative) mg/dL Urine Glucose (UA) Negative (Negative) mg/dL Assessment and Plan Assessment and plan (1) : Code(s): Z34.90 - Encounter for supervision of normal , unspecified, unspecified trimester Status: Inactive Assessment and Plan: - h/o IUFD @ 7 mo, likely 2/2 preeclampsia, low dose ASA, will start testing at 30wk - anti-cardiolipin antibody elevated at 14, will need repeat after 11/01/24, [facility] following - h/o malaria at age 8- moved her from [facility], recent test was negative for malaria - varicella non-immune - Citizen Of [place] speaking - NIPT low risk Patient was admitted for Cervidil induction of labor Patient required a dose of Cytotec for additional cervical ripening Induction has been augmented with Pitocin in Cook's cervical [place] balloon Cervix progressed to 7 cm heart tones were noted to have recurrent late decelerations throughout the evening Pitocin had to be stopped several times throughout the evening heart tone deceleration is continued after stopping Pitocin Discussed plan of care with patient Given remote from delivery and intolerance of labor, would recommend proceeding with primary Risks, benefits, alternatives reviewed Patient consented for primary for intolerance of labor
[2025-01-22] MEDS: ONDANSETRON INJ 4 MG/2 ML VIAL IV PUSH (06:55)
[2025-01-22] MEDS: FAMOTIDINE 20 MG/2 ML VIAL IV PUSH (06:58)
[2025-01-22] MEDS: ceFAZolin 2 GM/D5W 50 ML 2 GM/50 ML BAG IVPB (06:59)
--- NOTE | 2025-01-22 08:35 | P.PCNOB_ITS ---
OB - Delivery Note Procedure Delivery date: 01/22/25 Pre-op diagnosis: Decelerations and Non-Reassuring Status Post-op Diagnosis: Same Induction method: Per Cervidil Protocol Delivery augmentation: Pitocin Delivery monitor: External FHT and Internal Uterine Prior to decision for section, ACOG/SM labor guidelines were considered and discussed with the patient and staff. Decision made to proceed with the section.: Yes Procedure Performed: Primary Primary branch: low cervical, transverse Surgeon: Quinten Forbes MD Anesthesia type: Epidural Description of Procedure/Findings: The patient was taken to the operating room. Epidural anesthesia was administered and found to be adequate at a t-10 level. The patient was placed in a supine position with a slight left lateral tilt. A gao catheter was placed with return of clear urine. A Bovie grounding pad was placed. Surgical prep was performed and surgical drapes were placed. A surgical time out was performed. A Pfannenstiel skin incision was then made with the scalpel and carried through to the underlying layer of fascia. The fascia was then incised in the midline and the incision was extended laterally with the Alvarez scissors. The superior aspect of the fascia was then grasped with the Randall clamps, elevated, and the underlying rectus muscles dissected off bluntly and sharply. Attention was then turned to the inferior aspect of this incision which, in a similar fashion, was grasped, tented up with the Randall clamps, and the rectus muscles dissected off both bluntly and sharply. The rectus muscles were then in the midline. The peritoneum was identified and entered bluntly. The peritoneal incision was then extended superiorly and inferiorly with good visualization of the bladder. The bladder blade was reinserted. The uterus was inspected for rotation. A low-transverse uterine incision was made sharply with the scalpel and entry was made into the uterine cavity. An amniotomy was made and copious amounts of clear fluid were noted on return. The uterine incision was extended laterally bluntly. The bladder blade was removed and the fetus was delivered atraumatically. The nose and mouth were suctioned with a bulb syringe. The umbilical cord was clamped twice and cut. The infant was handed off to the waiting staff. At the time of the delivery, the had good color, tone and grimace. The inf ant cried with minimal stimulation. A second segment of umbilical cord was clamped and cut for cord blood gasses. Cord blood was collected for determination of the blood type and for direct [place]. The placenta was delivered spontaneously without difficulty. The placenta appeared grossly normal and complete. The uterus was exteriorized and cleared of all clots and debris. The uterine incision was repaired using 0-monocryl suture in a running fashion. The uterine closure was inspected for hemostasis. The posterior aspect of the uterus and the broad ligaments were inspected and the posterior cul-de-sac cleared of fluid and blood clots. The uterine closure was again inspected and Surgicell powder was applied to ensure excellent hemostasis. The uterus was returned to the abdominal cavity. The pericolic gutters were inspected and were cleared of all blood clots and debris. The uterine closure was then re inspected to ensure hemostasis as were all subfascial tissues. The peritoneum was closed using 3-0 vicryl in a running fashion. The fascia was reapproximated with 0-vicryl in a running fashion. The subcutaneous tissue was irrigated and hemostasis achieved with electrocautery. The skin was closed with 4-0 vicryl in a subcuticular fashion. A sterile dressing was applied to the wound. The patient tolerated the procedure well. Sponge, lap and needle counts were correct times three. The patient was taken to recovery in stable condition and without anticipated complications. Specimen: No Estimated Blood Loss: 235 Drains: No Packing: No Pathology: None sent Complications: No immediate complications Condition: Stable Disposition: Floor [place] Baby Date of : 01/22/25 Gestational Age by Date: 40 Infant gender: Male presentation: vertex Placenta delivery description: Manual Removal Cord Vessel Description: 3 Vessels
[2025-01-22] MEDS: ACETAMINOPHEN 500 MG TABLET 1000 MG PO (09:57)
[2025-01-22] MEDS: HYDROmorphone HCL INJ (*CRX) 1 MG/ML SYR 0.5 MG IV PUSH (10:08)
--- NOTE | 2025-01-22 10:32 | OBPPTRN ---
Patient transferred to post room #290 via stretcher. Support person present. Oriented to unit, room, information board, rooming in, admission packet and security measures. Patient verbalizes understanding.
[2025-01-22] MEDS: KETOROLAC 15 MG/ML VIAL (*BKC) IV PUSH ×3 (12:20→23:30)
[2025-01-22] MEDS: SIMETHICONE 80 MG TAB.CHEW PO ×2 (12:20→17:59)
[2025-01-22] MEDS: LIDOCAINE 5% PATCH 1 PATCH TRANSDERM (13:16)
[2025-01-22] MEDS: MULTIVIT/MIN/PREN/FOL AC/IRON TABLET 1 TAB PO (13:18)
[2025-01-22] MEDS: DEXTROSE 5%/0.45% SOD CHL 1,000 ML 125 ML IV CONT ×2 (13:29→21:30)
[2025-01-22] MEDS: ACETAMINOPHEN 325 MG TABLET 650 MG PO ×2 (18:00→23:30)
[2025-01-22] MEDS: DOCUSATE SODIUM 100 MG CAPSULE PO (18:00)
--- NOTE | 2025-01-22 18:24 | PC.NURSE ---
1820. Introductions were made, then consulted with patient to assess needs related to . Mom is kazakh speaking, dad translated the conversation. Mom reports she has been bottle feeding bc with her c/s incision it is too painful to nurse at the breast. She reports she would like to bottle feed this evening and possibly overnight and try to breastfeed and pump tomorrow. We discussed the process and initiation of her milk supply. Mom understands that this may delay her milk from coming in and possibly decrease her breast milk supply by delaying . Encouraged mother to express any questions or concerns she has regarding feedings. Advised her to call out for a latch check or if she needs assistance waking or positioning baby. Reviewed the blue feeding worksheet for required output and feeding at least 8-12 times every 24 hours. Mom asked if she would like a [facility] referral on discharge and she confirms that she would. Breast pump provided due to mom not latching infant at this time & per moms request. Instructions given on cleaning, care, usage, that there should be no pain, pumping schedule for milk production, collection, and storage of human milk. Patient was assessed for correct placement, flange size, to pump for comfort and nipple stretching/stimulation for adequate milk production every 3 hours (8 times in 24 hours) 1-2 times at night. Parents are encouraged to record the pumping schedule on the feeding sheet.?Mother voiced understanding of the education shared along with mom/baby guide and the pump measurement, flange fit handout for additional resource information. Reported to the Primary RN.
[2025-01-22] MEDS: HYDROcodone/acetaminophen (*CRX) 10-325 MG TABLET 1 TAB PO (23:00)
[2025-01-23] MEDS: ACETAMINOPHEN 325 MG TABLET 650 MG PO ×3 (04:38→19:55)
[2025-01-23] MEDS: IBUPROFEN 600 MG TABLET PO ×3 (04:38→19:55)
[2025-01-23 05:00] VITALS: BP 118/79; PULSE 72; RESP 20; TEMP 37; O2SAT 99
[2025-01-23 05:22] LABS: Eosinophils Percent Auto 0.1 % (0-4.4); Hematocrit 31.7 % (37.0-47.0); Hemoglobin 9.8 g/dL (12.0-15.0); Immature Granulocyte Absolute 0.05 K/mm3 (0.00-0.031); Immature Granulocyte Percent A 0.5 % (0-0.5); Lymphocytes Absolute Auto 1.43 K/mm3 (0.9-3.2); Lymphocytes Percent Auto 15.2 % (18.3-44.2); Mean Corpuscular HGB Conc 30.9 g/dl (32-36); Mean Corpuscular Hemoglobin 30.5 pg (26-34); Mean Corpuscular Volume 98.8 fl (80-100); Mean Platelet Volume 12.5 fl (7.4-10.4); Monocytes Absolute Auto 0.6 K/mm3 (0.1-0.6); Monocytes Percent Auto 6.7 % (2.6-8.5); Neutrophils Absolute Auto 7.3 K/mm3 (1.3-6.7); Neutrophils Percent Auto 77.5 % (45.5-73.1); Platelet Count Result 127 k/mm3 (150-375); Red Blood Count 3.21 M/mm3 (4.2-5.4); Red Cell Distribution Width 12.9 % (11.5-14.5); White Blood Count 9.4 K/mm3 (4.5-10.0)
--- NOTE | 2025-01-23 06:09 | PM.OBDSVD ---
DS: Admitting Diagnosis Discharge Date 01/24/25 Admitting Diagnosis Intrauterine at term intolerance to labor DS: Discharge Diagnosis Discharge Diagnosis (1) delivery delivered: Code(s): O82 - Encounter for delivery without indication Status: Acute OB - DS: Summary Hospital Course Hospital Course: 29 yo who presented for IOL at 40w1d. Labor progressed to 7 cm. FHT were noted to have recurrent late decelerations despite stopping pitocin and repositioning. Patient underwent and uncomplicated primary . course was uncomplicated. s OB Procedures : None OB Procedures Intrapartum: OB Procedures: : None Peripartum Data Delivery Method: Section Procedures: Procedures Operation Date: 01/22/25 07:00 Actual Procedure Side Surgeon p Section Quinten Forbes MD complications: none Status at Discharge Functional status at discharge: independent ambulation Overall status at discharge: patient is progressing back to baseline Time Spent with Patient Time attestation: Total time spent providing and/or coordinating discharge services: Time spent: Less than 30 minutes Exam Const: General: comfortable and no acute distress Resp: Effort & Inspection: normal respiratory effort Auscultation: clear to auscultation bilaterally Cardio: Rate: regular rate GI: Inspection: non-distended GI Palp: Yes Soft to palpation, No Firmness to palpation present (GI), Yes Tenderness to palpation present (GI) (mild tenderness over incision ) and No Guarding due to palpation present (GI) Auscultation: normal bowel sounds Psych: Appearance: grossly normal Mental Status: mental status grossly normal DS: Data Data Completed and Pending Labs on day of discharge: Labs from last 24 hours 01/23/25 04:29 WBC 9.4 RBC 3.21 L Hgb 9.8 L D Hct 31.7 L MCV 98.8 MCH 30.5 MCHC 30.9 L RDW 12.9 Plt Count 127 L MPV 12.5 H Immature Gran % (Auto) 0.5 Neut % (Auto) 77.5 H Lymph % (Auto) 15.2 L [place] % (Auto) 6.7 Eos % (Auto) 0.1 Baso % (Auto) 0.0 L Lymph # (Auto) 1.43 [place] # (Auto) 0.6 Eos # (Auto) 0.0 Baso # (Auto) 0.0 Abs Immat Gran (auto) 0.05 H Absolute Neuts (auto) 7.3 H Absolute Nucleated RBC 0.000 Nucleated RBC % 0.0 Discharge Plan Discharge Attending physician on discharge: Latanya Card Discharging Clinician: Quinten Forbes Patient Disposition: Home Activity: as tolerated and pelvic rest Diet: regular Patient Instructions: Antibiotic Form Patient Language: [place] Stand Alone Forms: General Discharge Information Follow-up/Referrals: Quinten Forbes MD [Physician] - 4 Weeks Discharge Medications: New oxycodone-acetaminophen 5-325 mg tablet 1 tablet PO Q6H PRN (Reason: pain) Qty: 28 0RF docusate sodium 100 mg Capsule 100 mg PO BID Qty: 30 0RF polysaccharide iron complex 150 mg iron Capsule 150 mg PO BIDWM Qty: 30 0RF ibuprofen 600 mg tablet 600 mg PO Q6H PRN (Reason: pain) Qty: 30 0RF sennosides-docusate sodium [Senna with Docusate Sodium] 8.6-50 mg tablet 1 tab-cap PO HS Qty: 30 0RF Continued famotidine 10 mg tablet 10 mg PO DAILY Qty: 90 1RF Alive Daily Support 180 mcg-25 mg- 25 mg tablet,chewable 1 tablet PO DAILY 30 Days Qty: 30 0RF Date of admission: 01/20/25 17:01 Primary Care Provider: UNKNOWN,DOCTOR Admitting Provider: Quinten Forbes Attending physician on admission: Quinten Forbes Condition: Stable
--- NOTE | 2025-01-23 06:13 | P.PNOB_ITS ---
OB - PN: Subj Subjective Date/time seen: 01/23/25 06:13 Patient comments: no complaints, pain well controlled, tolerating diet and flatus present OB - PN: Obj Data Labs 01/23/25 04:29 01/22/25 00:19 Labs: Laboratory Results - last 24 hr 01/23/25 04:29 WBC 9.4 RBC 3.21 L Hgb 9.8 L D Hct 31.7 L MCV 98.8 MCH 30.5 MCHC 30.9 L RDW 12.9 Plt Count 127 L MPV 12.5 H Immature Gran % (Auto) 0.5 Neut % (Auto) 77.5 H Lymph % (Auto) 15.2 L [place] % (Auto) 6.7 Eos % (Auto) 0.1 Baso % (Auto) 0.0 L Lymph # (Auto) 1.43 [place] # (Auto) 0.6 Eos # (Auto) 0.0 Baso # (Auto) 0.0 Abs Immat Gran (auto) 0.05 H Absolute Neuts (auto) 7.3 H Absolute Nucleated RBC 0.000 Nucleated RBC % 0.0 OB - PN A/P Plan day: 1 Plan: routine care Comments: patient doing well H/H 9.05/17, continue iron supplementation afebrile, VSS incision C/D/I gao removed, voiding spontaneously continue routine post op care Time Spent With Patient Time: Total time spent is greater than 50% in coordination of care (as documented) at patient's floor/unit and/or counseling patient: Time with patient: less than 15 minutes Review of Systems 2 Constitutional: Constitutional: Reports no additional constitutional complaints Cardiovascular: Cardiovascular: Reports no additional cardiovascular complaints Respiratory: Respiratory: Reports no additional respiratory complaints Gastrointestinal: Gastrointestinal: Reports no additional gastrointestinal complaints Genitourinary: Genitourinary: Reports no additional female genitourinary complaints Exam 2 Const: General: comfortable and no acute distress Resp: Effort & Inspection: normal respiratory effort Auscultation: clear to auscultation bilaterally Cardio: Rate: regular rate GI: GI Palp: Yes Soft to palpation, Yes Tenderness to palpation present (GI) (around incision ) and No Guarding due to palpation present (GI) A uscultation: normal bowel sounds Other: incision C/D/I, covered with Dermabond Psych: Appearance: grossly normal Mental Status: mental status grossly normal Affect: normal affect
[2025-01-23 07:35] VITALS: BP 138/82; PULSE 64; RESP 16; TEMP 36.9; O2SAT 97
[2025-01-23] MEDS: MULTIVIT/MIN/PREN/FOL AC/IRON TABLET 1 TAB PO (10:36)
[2025-01-23] MEDS: POLYSACCHARIDE IRON COMPLEX 150 MG CAPSULE PO (10:36)
[2025-01-23] MEDS: DOCUSATE SODIUM 100 MG CAPSULE PO (10:36)
[2025-01-23] MEDS: SIMETHICONE 80 MG TAB.CHEW PO ×2 (10:37→14:32)
--- NOTE | 2025-01-23 13:50 | PC.NURSE ---
Patient requested assistance with pumping. She already has a hospital pump set up but did not pump yet. We used the 24mm flange and she declined nipple pain. Patient only speaks [place]ian and her prefers to translate rather than use the translation line. Parents shown how to use the initiate mode on the pump. Advised that breast milk may be kept at room temperature for up to 4 hours or that we can place milk in our refrigerator. Dad was distracted with trying to situate and feed baby and mom will most likely need pumping instruction reinforcement. The RN went to the room and the patient was in pain and nauseated so they discontinued pumping. Mom had drops of colostrum in the flanges. Mother declines assistance putting baby to breast at this time and chooses to bottle feed with formula.
[2025-01-23] MEDS: HYDROcodone/acetaminophen (*CRX) 10-325 MG TABLET 1 TAB PO (14:35)
[2025-01-23] MEDS: LIDOCAINE 5% PATCH 1 PATCH TRANSDERM (16:57)
--- NOTE | 2025-01-23 17:49 | PC.NURSE ---
Pt refused iron, stool softener, mylicon, tylenol and ibuprofen. States she will let RN know when she is in pain and wants it and will take other meds after she eats.
[2025-01-23 19:30] VITALS: BP 126/84; PULSE 75; RESP 20; TEMP 36.9; O2SAT 97
[2025-01-24] MEDS: HYDROcodone/acetaminophen (*CRX) 10-325 MG TABLET 1 TAB PO (00:09)
[2025-01-24 08:06] VITALS: BP 134/84; PULSE 77; RESP 18; TEMP 37.1; O2SAT 97
--- NOTE | 2025-01-24 09:34 | PC.NURSE ---
This patient is declining to take scheduled medications on their scheduled time but will let this RN know when she is ready to take them.
--- NOTE | 2025-01-24 09:56 | P.PNOB_ITS ---
OB - PN: Subj Subjective Date/time seen: 01/24/25 09:56 Narrative: POD#2 [facility] reports doing ok today. 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 Her pain is controlled. She is tolerating regular diet, voiding, and passed gas once. She has only ambulated a couple times; has not showered yet. She denies any issues with her incision. She is wanting to breast feed but has only put the baby to breast once and only pumped once. OB - PN: Obj Data Labs 01/23/25 04:29 01/22/25 00:19 OB - PN A/P Assessment and Plan (1) delivery delivered: Code(s): O82 - Encounter for delivery without indication Status: Acute Plan day: 2 Plan: routine care Comments: - PO pain meds - Regular diet - Increased ambulation encouraged - Encouraged to shower today - Recommend that she puts baby to breast or pumps q2-3hr if wanting to breast feeed - will keep today; plan for d/c home tomorrow Time Spent With Patient Time: Total time spent is greater than 50% in coordination of care (as documented) at patient's floor/unit and/or counseling patient: Review of Systems 2 Constitutional: Constitutional: Denies chills, Denies fever(s) and Denies headache(s) Eyes: Eyes: Denies change in vision ENT: Denies dizziness and Denies headache(s) Cardiovascular: Cardiovascular: Denies chest pain, Denies palpitations and Denies dyspnea Respiratory: Respiratory: Denies cough and Denies dyspnea Gastrointestinal: Gastrointestinal: Denies nausea and Denies vomiting Genitourinary: Comments: normal bleeding Neurologic: Denies dizziness and Denies headache(s) Endocrine: Endocrine: Denies palpitations Exam 2 Const: General: cooperative, healthy appearing, comfortable and no acute distress Orientation/consciousness: patient oriented x3 Resp: Effort & Inspection: normal respiratory effort Auscultation: clear to auscultation bilaterally Cardio: Rate: regular rate GI: Inspection: non-distended and incision (covered with steri strips) GI Palp: Yes abdominal tenderness (appropriate) and Yes Soft to palpation A uscultation: normal bowel sounds : Other: fundus firm Skin: General skin exam: normal color Neuro: General: patient oriented x3 Extrem: General: normal to inspection Psych: Appearance: grossly normal Affect: normal affect Attitude: c ooperative
[2025-01-24] MEDS: DOCUSATE SODIUM 100 MG CAPSULE PO ×2 (10:41→16:53)
[2025-01-24] MEDS: IBUPROFEN 600 MG TABLET PO ×3 (10:41→23:40)
[2025-01-24] MEDS: POLYSACCHARIDE IRON COMPLEX 150 MG CAPSULE PO ×2 (10:41→16:53)
[2025-01-24] MEDS: SIMETHICONE 80 MG TAB.CHEW PO ×3 (10:41→16:53)
[2025-01-24] MEDS: MULTIVIT/MIN/PREN/FOL AC/IRON TABLET 1 TAB PO (10:41)
[2025-01-24] MEDS: ACETAMINOPHEN 325 MG TABLET 650 MG PO ×3 (10:41→23:40)
--- NOTE | 2025-01-24 14:44 | PC.NURSE ---
Breast pump provided due to maternal request. Parents are encouraged to record the pumping schedule on the feeding sheet.?Mother voiced understanding of the education. Reported to the Primary RN.
[2025-01-24] MEDS: LIDOCAINE 5% PATCH 1 PATCH TRANSDERM (16:58)
[2025-01-24 20:00] VITALS: BP 143/83; PULSE 67; RESP 20; TEMP 36.7; O2SAT 98
[2025-01-25 08:20] VITALS: BP 134/93; PULSE 68; RESP 16; TEMP 37; O2SAT 100
[2025-01-25] MEDS: POLYSACCHARIDE IRON COMPLEX 150 MG CAPSULE PO (08:47)
[2025-01-25] MEDS: SIMETHICONE 80 MG TAB.CHEW PO (08:47)
[2025-01-25] MEDS: IBUPROFEN 600 MG TABLET PO (08:48)
[2025-01-25] MEDS: MULTIVIT/MIN/PREN/FOL AC/IRON TABLET 1 TAB PO (08:48)
[2025-01-25] MEDS: DOCUSATE SODIUM 100 MG CAPSULE PO (08:48)
[2025-01-25] MEDS: ACETAMINOPHEN 325 MG TABLET 650 MG PO (08:48)
[2025-01-26 10:40] VITALS: BP 138/89; PULSE 78; RESP 18; TEMP 37.1; O2SAT 100
== END 2025-01-25 12:50 | disposition home or self-care (01) | DRG 788 ==
LOC: ANHLDR 01-22 07:47 → ANHOB2 01-22 10:37
PROVIDERS: Admitting Provider Student in an Organized Health Care Education/Training Program; Visit Provider Student in an Organized Health Care Education/Training Program
PROC: 10D00Z1 Extraction of Products of Conception, Low, Open Approach (ICD-10-PCS; CPT 59514; principal; 2025-01-22 07:00)
DX: O99.892 Other specified diseases and conditions complicating childbirth (principal); Z37.0 Single live birth; Z3A.40 40 weeks gestation of pregnancy; Z87.59 Personal history of other complications of pregnancy, childbirth and the puerperium; O99.824 Streptococcus B carrier state complicating childbirth; O36.8330 Maternal care for abnormalities of the fetal heart rate or rhythm, third trimester, not applicable or unspecified; Z86.13 Personal history of malaria
CPT/HCPCS: 36415; 80053; 81001; 82570; 84156; 84550; 85025; 86593; 86703; 86850; 86900; 86901; 87086; A9270; G0432; J0290; J0690; J1171; J1885; J2250; J2274; J2405; J2590; J2795; J3010; J7030; J7120